=== PATIENT | female | born 1960 | race Caucasian/White ===

== ENCOUNTER 2020-10-25 11:37 | Day surgery (SDC) | payer BC ==
[~2020-10-25] VITALS: Ht 160 cm; Wt 70.0 kg
--- NOTE | ~2020-10-25 | OR ---
[facility] [address], [place] [address] Draft DATE OF OPERATION: 10/25/2020 SURGEON: Leslie Saunders MD PREOPERATIVE DIAGNOSES: 1. Episodic perianal drainage. 2. Known history of right posterior lateral anal fistulotomy elsewhere. POSTOPERATIVE DIAGNOSES: 1. Normal-appearing colon and rectum. 2. Hypertrophied anal papilla x1. No evidence of ongoing qcckoqs-zs-oyp. PROCEDURES: Total colonoscopy to cecum with biopsy of cecum, left colon, and rectum. ANESTHESIA: Intravenous sedation, fentanyl 150 mcg, and Versed 6 mg. INDICATION: This 60-year-old white woman is a patient of Dr. Mcdonnell and known to me from the past. She has a distant history of right posterior fistulotomy (by description) elsewhere. Recently, she had complained of episodic swelling and possible egress or drainage. Concern was maintained for possible recurrent heounfj-pg-wko. Examination recently in the office showed her to have a well-formed scar like abnormality, radially directed at the 1 o'clock position in prone ivanna-knife position, but no sign of open fistula or other issue. She has no clinical evidence of rectocele. She was admitted to undergo colonoscopy to assess for neoplastic disease. Also, examination of the rectum and surrounding structures for possible recurrent bsulmgm-rk-rpn fissure or other abnormality. FINDINGS: In a rectal examination, showed no evidence of cnoxmak-zy-awc. A dense scar at 1 o'clock position was once again reaffirmed. Retroflexed view on colonoscopy showed a hypertrophied anal papilla, but did not show active open anal fistula. There was no sign of colitis or diverticular disease. DESCRIPTION OF PROCEDURE: The patient was brought to the endoscopy suite and placed in lateral decubitus position, given intravenous sedation to the point of slurred speech and nystagmus. Pre-treatment with Decadron 4 mg and Zofran 4 mg was undertaken to avoid postoperative nausea and PATIENT NAME: MELISSA BAKER OPERATIVE REPORT DATE OF : 64 REPORT #: [id number] PHYSICIAN: LESLIE SAUNDERS MD PCP: RD MCDONNELL MD REPORT IS CONFIDENTIAL AND NOT TO BE RELEASED WITHOUT AUTHORIZATION [facility] [address], [place] [address] Draft vomiting, which she has suffered from in the past. After adequate sedation, anorectal examination was undertaken showing no sign of fistula, abscess, draining pocket, or other problem. Tire Adjuster nurse provided lighting as this examination took place. An Olympus video colonoscope was passed in the rectum and manipulated throughout the colon, ultimately intubating the right colon. Visualization of the cecum could be undertaken. A long reach biopsy of the cecum itself was undertaken and the scope was then withdrawn. Examination throughout showed no sign of colitis, diverticular formation, or other problem. Biopsies were taken of the left colon and ultimately the rectum. Retroflexed view demonstrated an obvious hypertrophied anal papilla, but no evidence of qvllsmo-dl-ewp, submucosal collection, neoplasm, colitis, or other issue. The scope was carefully withdrawn and examination. Anal canal was similarly showed no obvious pathologic process. The patient was taken to the recovery room in good condition at conclusion of the procedure. CONCLUDING DIAGNOSIS: No evidence of active einkvbd-gd-fsd. PLAN: Recommend a high-fiber diet. Citrucel as a fiber supplement, it may be appropriate for her. If she has a recurrent drainage or swelling, she should call me and we will promptly evaluate and see if she does not have, in fact having recurring perianal fistula. MD WOJCIECH Garcia/MODL /[id number] cc: Rd Mcdonnell MD Copies: RD MCDONNELL MD ~ PATIENT NAME: MELISSA BAKER OPERATIVE REPORT DATE OF : 64 REPORT #: [id number] PHYSICIAN: LESLIE SAUNDERS MD PCP: RD MCDONNELL MD REPORT IS CONFIDENTIAL AND NOT TO BE RELEASED WITHOUT AUTHORIZATION
[~2020-10-25 11:37] MED LIST: DEXAMETHASONE1 MG PO; DICLOFENAC SODI75 MG PO; FISH OIL 1,0001 EAC3 PO; FLAX OIL1000 MG PO; FLAX SEED OIL1000 MG PO; IBUPROFEN800 MG PO; IRON55 MG PO; MAGNESIUM100 MG PO; MAGNESIUM250 MG PO; MEDROXYPROGESTE10 MG PO; METHOCARBAMOL750 MG PO; MOTRIN IB200 MG PO; NABUMETONE500 MG PO; NORCO 5-325 TA1 EACH PO; PROVERA10 MG PO; RELEFEN; ROBAXIN500 MG PO; TYLENOL WITH C1 EACH PO; VITAMIN B COMP1 EACH PO; VITAMIN B-1250 MCG PO; VITAMIN B-225 MG PO; VITAMIN C250 MG PO
--- NOTE | 2020-10-25 14:37 | NUR ---
10/25/20 1437 Marina Rascon 1432 PT ARRIVED TO PACU ON 2L NC, VSS. PT WAKES EASILY AND DENIES PAIN AND NAUSEA. PT EASILY FALLS BACK TO SLEEP.
--- NOTE | 2020-10-29 11:33 | PATH ---
[facility] [address], [place] [address] Signed SPECIMEN(S): A RIGHT BIOPSY SPECIMEN(S): B LEFT BIOPSY SPECIMEN(S): C SIGMOID BIOPSY SPECIMEN(S): D RECTUM BIOPSY SPECIMEN SOURCE: A. RIGHT BIOPSY B. LEFT BIOPSY C. SIGMOID BIOPSY D. RECTUM BIOPSY CLINICAL HISTORY: Colonoscopy. Perianal pain, anorectal fistula, dark stools. MICROSCOPIC DESCRIPTION: Histologic sections of all submitted blocks are examined by light microscopy. These findings, together with the gross examination, support the pathologic diagnosis. FINAL PATHOLOGIC DIAGNOSIS: A. Colon, right, biopsy: - Colonic mucosa with focal dilated submucosal vessels. - Negative for active, chronic, or microscopic colitis. - Negative for dysplasia or malignancy. B. Colon, left, biopsy: - Colonic mucosa with no histopathologic abnormality. - Negative for active, chronic, or microscopic colitis. - Negative for dysplasia or malignancy. C. Colon, sigmoid, biopsy: - Colonic mucosa with no histopathologic abnormality. - Negative for active, chronic, or microscopic colitis. - Negative for dysplasia or malignancy. D. Rectum, biopsy: - Rectal mucosa with no histopathologic abnormality. - Negative for active or chronic proctitis. - Negative for dysplasia or malignancy. NAL:cml:C2NR GROSS DESCRIPTION: Four specimens are received in four containers, labeled "RB." A. The specimen, labeled "RB, ascending colon biopsy," is received in formalin and consists of one rasheed soft tissue fragment that measures 0.2 cm in greatest PATIENT NAME: MELISSA BAKER PATHOLOGY DATE OF : 64 REPORT #: [id number] PHYSICIAN: JALIL CHURCH PCP: MACK ARAIZA MD REPORT IS CONFIDENTIAL AND NOT TO BE RELEASED WITHOUT AUTHORIZATION [facility] [address], [place] [address] Signed dimension. The specimen is entirely submitted in cassette (A1). B. The specimen, labeled "RB, descending colon biopsy," is received in formalin and consists of two rasheed soft tissue fragments that measure 0.1-0.2 cm in greatest dimension. The specimen is entirely submitted in cassette (B1). C. The specimen, labeled "RB, sigmoid colon biopsy," is received in formalin and consists of two rasheed soft tissue fragments that measure 0.1-0.2 cm in greatest dimension. The specimen is entirely submitted in cassette (C1). D. The specimen, labeled "RB, rectum biopsy," is received in formalin and consists of three rasheed soft tissue fragments that measure 0.1-0.2 cm in greatest dimension. The specimen is entirely submitted in cassette (D1). JS (under the direct supervision of a pathologist) The Gross Description was prepared using a voice recognition system. The report was reviewed for accuracy; however, sound-alike word errors, addition and/or deletions may occur. If there is any question about this report, please contact Client Services. PERFORMING LABORATORY: The technical component was performed by [facility] [address] ([employer] Consultant: Estelle Thibodeaux MD; CLIA# [id number]). [facility] [address] [address] (CLIA# [id number]). Diagnostician: Faviola Guzman MD Pathologist Electronically Signed 10/29/2020 Copies: ~ PATIENT NAME: MELISSA BAKER PATHOLOGY DATE OF : 64 REPORT #: [id number] PHYSICIAN: JALIL CHURCH PCP: MACK ARAIZA MD REPORT IS CONFIDENTIAL AND NOT TO BE RELEASED WITHOUT AUTHORIZATION
== END 2020-10-25 15:15 | disposition home or self-care (01) ==
LOC: DS 11:37 → OPS 11:37 → DS 12:00 → OPS 13:00
PROVIDERS: ATTEND Surgery
PROC: 0DBN8ZX Excision of Sigmoid Colon, Via Natural or Artificial Opening Endoscopic, Diagnostic (ICD-10-PCS; 2020-10-25)
PROC: 0DBP8ZX Excision of Rectum, Via Natural or Artificial Opening Endoscopic, Diagnostic (ICD-10-PCS; 2020-10-25)
PROC: 0DBF8ZX Excision of Right Large Intestine, Via Natural or Artificial Opening Endoscopic, Diagnostic (ICD-10-PCS; 2020-10-25)
PROC: 0DBG8ZX Excision of Left Large Intestine, Via Natural or Artificial Opening Endoscopic, Diagnostic (ICD-10-PCS; principal; 2020-10-25 13:00)
DX: K62.89 Other specified diseases of anus and rectum (principal); K21.9 Gastro-esophageal reflux disease without esophagitis; D64.9 Anemia, unspecified; F32.9 Major depressive disorder, single episode, unspecified; Z88.5 Allergy status to narcotic agent; Z79.899 Other long term (current) drug therapy
CPT/HCPCS: 99153; G0500; J1100; J2250; J2405; J3010; J7121

== ENCOUNTER 2025-11-19 17:59 | Emergency (ER) | payer BC ==
[~2025-11-19] VITALS: Ht 160 cm; Wt 78.7 kg
[2025-11-19] MEDS ORDERED: PROCHLORPERAZINE EDISYLATE 10 MG/2 ML VIAL IV ONE (20:15)
[2025-11-19] MEDS ORDERED: KETOROLAC TROMETHAMINE 30 MG/ML VIAL IV ONE (20:15)
[2025-11-19] MEDS ORDERED: DEXAMETHASONE SOD PHOS 10 MG/ML VIAL IV ONE (20:15)
[2025-11-19] MEDS ORDERED: SODIUM CHLORIDE 0.9% 500 ML IV ONE (20:15)
[2025-11-19] MEDS ORDERED: PROMETHAZINE HC25 M1 PO (20:53)
[2025-11-19] MEDS ORDERED: IMITREX25 MG PO (20:53)
[2025-11-19 21:08] VITALS: BP 137/94
== END 2025-11-19 21:10 | disposition home or self-care (01) ==
LOC: ED 17:59
DX: G43.909 Migraine, unspecified, not intractable, without status migrainosus (principal); Z88.8 Allergy status to other drugs, medicaments and biological substances
CPT/HCPCS: 96374; 96375; 99283-25; J0780; J1100; J1200; J1885; J7040